=== PATIENT | male | born 1935 | race Caucasian/White ===

== ENCOUNTER 2017-05-01 10:17 | Emergency (ER) | payer OTHER ==
[2017-05-01 10:36] VITALS: BP 123/82; TEMP 97.4; BMI 27.3
--- NOTE | 2017-05-01 12:14 | ED.PDOC ---
General ED Provider: Dr. TEVIN SANCHEZ Chief Complaint: Hip Pain/Injury Stated Complaint: Fell 6 days ago, injurying right leg. Severely bruised. Pain with walking or sitting down. Is able to ambulate. Not worse with weight- bearing. Time Seen by Physician: 12:10 Mode of Arrival: Walk-In Information Source: Patient Exam Limitations: No limitations Primary Care Provider: IDALIA HOLGUIN Nursing and Triage Documentation Reviewed and Agree: Yes Musculoskeletal Complaint Exam - Lower Extremity Complaint/Exam Location of Pain: Reports: Right, Leg Mechanism of Injury: Reports: Trauma (tripped and fell sideways onto right upper leg) Onset/Duration: 5 day ago Symptoms Are: Still present Onset of Pain: Reports: Immediate Initial Severity: Mild Current Severity: Moderate (moderate to severe with sitting down (motion of, not once sat down)) Location: Reports: Diffuse Character: Reports: Sharp (with sitting down), Aching, Throbbing Alleviating: Reports: Rest Aggravating: Reports: Movement Able to Bear Weight: Yes Associated Signs and Symptoms: Reports: Bruising Septic Arthritis Risk Factors: Reports: None Related Surgical History: Reports: None Lower Extremity Findings: Present: Ecchymosis (along posteror-lateral upper right leg, no pain with ROM of hip or knee), Tenderness (inbruised area) NV Bundle Intact Distal to Injury: Yes Compartment Syndrome Risk Factors: Present: Pain Karen's Sign Present: No Differential Diagnoses: Contusion, Fracture, Hematoma Review of Systems - Review Of Systems Constitutional: Reports: No symptoms Eyes: Reports: No symptoms Ears, Nose, Mouth, Throat: Reports: No symptoms Respiratory: Reports: No symptoms Cardiac: Reports: No symptoms GI: Reports: No symptoms : Reports: No symptoms Musculoskeletal: Reports: Muscle pain (in right upper posterior-lateral leg) Skin: Reports: Bruising (of right upper posterior-lateral leg) Neurological: Reports: No symptoms All Other Systems: Reviewed and Negative Past Medical History - Past Medical History Previously Healthy: Yes Endocrine: Reports: None Cardiovascular: Reports: Hypertension, A-Fib Respiratory: Reports: None Hematological: Reports: None Gastrointestinal: Reports: None Genitourinary: Reports: Other (BPH to have repeat TURP next week) Neuro/Psych: Reports: None Musculoskeletal: Reports: None Cancer: Reports: None - Surgical History General Surgical History: Reports: Other (TURP) - Family History Family History: Reports: Unknown - Social History Smoking Status: Former smoker Hx Substance Use: No Alcohol Screening: Occasionally Lives: Alone - Immunizations Tetanus Shot up to Date: Yes Influenza Vaccine within 12 Months: No Pneumococcal Vaccine up to Date: No Physical Exam - Physical Exam Appearance: Well-appearing, No pain distress, Well-nourished Ill-appearing: None Pain Distress: None Eyes: ARVIND, EOMI, Conjunctiva clear ENT: Ears normal, Nose normal, Oropharynx normal Neck: Supple Respiratory: Airway patent, Breath sounds clear, Breath sounds equal, Respirations nonlabored Cardiovascular: RRR, Pulses normal, No rub, No murmur GI/: Soft, Nontender, No masses, Bowel sounds normal, No Organomegaly Musculoskeletal: Normal strength, ROM intact, No edema, No calf tenderness Skin: Warm (marked ecchymosis along upper posterior-lateral leg), Dry Neurological: Sensation intact, Motor intact, Reflexes intact, Cranial nerves intact, Alert, Oriented Psychiatric: Affect appropriate, Mood appropriate Interpretation - Radiology Interpretation Radiology Interpretation By: Radiologist Radiology Results: Negative Exam Interpreted: Other Xray Comments: right femur: WNL Critical Care Note - Critical Care Note Total Time (mins): 0 Course - Course Orders, Labs, Meds: Orders Category Date Time Status FEMUR, RIGHT 2 VIEWS Stat RADS 05/01/17 12:18 Completed Vital Signs: Temp Pulse Resp BP Pulse Ox 05/01/17 10:22 97.4 F L 68 20 123/82 96 Departure - Departure Time of Disposition: 13:29 Disposition: HOME SELF-CARE Discharge Problem: Contusion of left leg, Hematoma of left lower extremity Instructions: Contusion in Adults (ED), Hematoma (ED) Condition: Good Pt referred to PMD for follow-up: No (See doctor if no better in one week) Allergies/Adverse Reactions: Allergies No Known Allergies Allergy (Unverified 05/01/17 10:33) Home Medications: Ambulatory Orders Lisinopril 10 mg PO DAILY 05/01/17 Metoprolol Succinate [Toprol Xl] 25 mg PO DAILY 05/01/17 Rivaroxaban [Xarelto] 20 mg PO DAILY 05/01/17 Disposition Discussed With: Patient
--- NOTE | 2017-05-01 13:01 | DI ---
EXAM: RIGHT FEMUR, 2 VIEWS HISTORY: Fall FINDINGS: Right femur AP and lateral views. No fracture or joint dislocation. 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 At least mild osteoarthritis of the hip. Vascular calcifica tions are noted. IMPRESSION: No fracture or dislocation.
== END 2017-05-01 13:36 | disposition home or self-care (01) ==
LOC: ED 10:17
DX: S80.11XA Contusion of right lower leg, initial encounter (principal); W01.0XXA Fall on same level from slipping, tripping and stumbling without subsequent striking against object, initial encounter
CPT/HCPCS: 99283